=== PATIENT | male | born 1970 | race Caucasian/White ===

== ENCOUNTER → 2025-01-01 12:42 | Outpatient (REF) | payer BC, SELFPAY | LOC: HWRAD 12:42 | PROVIDERS: ATTENDING PHYSICIAN Family Medicine | DX: R05.2 Subacute cough (principal); Z20.828 Contact with and (suspected) exposure to other viral communicable diseases | CPT/HCPCS: 71046 ==

== ENCOUNTER → 2025-02-18 10:16 | Outpatient (REF) | payer BC, SELFPAY | LOC: HWRAD 10:16 | PROVIDERS: ATTENDING PHYSICIAN Internal Medicine Critical Care Medicine; FAMILY PHYSICIAN Family Medicine | DX: R05.3 Chronic cough (principal); J18.9 Pneumonia, unspecified organism; R93.89 Abnormal findings on diagnostic imaging of other specified body structures | CPT/HCPCS: 71250 ==

== ENCOUNTER → 2025-02-21 10:00 | Outpatient (REF) | payer BC, SELFPAY | LOC: RSP 10:00 | PROVIDERS: ATTENDING PHYSICIAN Internal Medicine Critical Care Medicine; FAMILY PHYSICIAN Family Medicine | DX: J18.9 Pneumonia, unspecified organism (principal) | CPT/HCPCS: 88738; 94010; 94727; 94729 ==